=== PATIENT | male | born 1995 | race Two or more races ===

== ENCOUNTER 2019-09-18 22:19 | Emergency (ER) | payer SELFPAY ==
[~2019-09-18] VITALS: Ht 165.1 cm; Wt 66.0 kg
[2019-09-18 22:24] VITALS: BP 126/76
== END 2019-09-18 23:14 | disposition home or self-care (01) ==
LOC: ER 22:19
DX: F12.10 Cannabis abuse, uncomplicated (principal); F41.9 Anxiety disorder, unspecified
CPT/HCPCS: 99283

== ENCOUNTER 2020-02-26 17:13 | Emergency (ER) | payer MEDICAID ==
[~2020-02-26] VITALS: Ht 175.3 cm; Wt 64.0 kg
[2020-02-26] MEDS ORDERED: IBUPROFEN 600MG TABLET ONE (17:45)
[2020-02-26] MEDS ORDERED: IBUPROFEN 600MG TABLET PO ONE (18:15)
[2020-02-26 19:30] VITALS: BP 103/71
== END 2020-02-26 19:30 | disposition home or self-care (01) ==
LOC: ER 17:13
DX: J02.0 Streptococcal pharyngitis (principal); F12.10 Cannabis abuse, uncomplicated
CPT/HCPCS: 87430; 87804; 99283

== ENCOUNTER 2020-05-01 12:19 | Emergency (ER) | payer MEDICAID, SELFPAY ==
[~2020-05-01] VITALS: Ht 167.6 cm; Wt 86.0 kg
[2020-05-01 12:20] VITALS: BP 123/55
== END 2020-05-01 12:57 | disposition home or self-care (01) ==
LOC: ER 12:19
DX: Z20.828 Contact with and (suspected) exposure to other viral communicable diseases (principal); R03.0 Elevated blood-pressure reading, without diagnosis of hypertension; F12.10 Cannabis abuse, uncomplicated
CPT/HCPCS: 87635; 99281; 99283

== ENCOUNTER 2022-11-08 01:27 | Emergency (ER) | payer SELFPAY ==
[~2022-11-08] VITALS: Ht 167.6 cm; Wt 78.5 kg
[2022-11-08 01:32] VITALS: BP 131/77
== END 2022-11-08 06:01 | disposition home or self-care (01) ==
LOC: ER 01:27
DX: R00.2 Palpitations (principal); R06.00 Dyspnea, unspecified; R03.0 Elevated blood-pressure reading, without diagnosis of hypertension; F12.90 Cannabis use, unspecified, uncomplicated
CPT/HCPCS: 71045; 82962; 93005; 99283

== ENCOUNTER 2022-11-12 22:24 | Emergency (ER) | payer SELFPAY ==
[~2022-11-12] VITALS: Ht 167.6 cm; Wt 82.0 kg
[2022-11-13 00:41] LABS: BASOPHILS % 0.4 % (0.0-2.0); EOSINOPHILS % 1.4 % (0.0-5.0); HEMOGLOBIN. 14.2 g/dL (14.0-18.0); LYMPHOCYTES % 29.9 % (20.0-50.0); MEAN CORPUSCULAR HEMOGLOBIN 30.5 pg (28.0-32.0); MEAN CORPUSCULAR VOLUME 87.8 fL (80.0-94.0); MEAN PLATELET VOLUME 7.4 fl (7.4-10.4); NEUTROPHILS % 61.3 % (40.0-76.0); PLATELET 240 x1000/uL (130-400); RED BLOOD CELL COUNT 4.67 mill/uL (4.7-6.1); RED CELL DISTRIBUTION WIDTH 13.5 % (11.6-14.6)
[2022-11-13 00:44] LABS: CHLORIDE 104 mEq/L (98-107)
== END 2022-11-13 01:21 | disposition home or self-care (01) ==
LOC: ER 22:24
DX: R10.13 Epigastric pain (principal); K21.9 Gastro-esophageal reflux disease without esophagitis; F12.10 Cannabis abuse, uncomplicated; Z87.891 Personal history of nicotine dependence
CPT/HCPCS: 36415; 80053; 85025; 99283